=== PATIENT | male | born 1995 | race Caucasian/White ===

== ENCOUNTER → 2016-08-12 | Outpatient (CLI) | payer MEDICAID ==
[~2016-08-12] MED LIST: GADOBUTROL 7.5 MMOL/7.5 ML PFS ONE; INSU100V5 SQ-INSULIN; INSU100V8 SQ; MESA1.2T PO
== END | disposition home or self-care (01) ==
LOC: RAD 09:02
PROVIDERS: ATTEND Family Medicine
DX: M25.461 Effusion, right knee (principal); M71.21 Synovial cyst of popliteal space [Baker], right knee
CPT/HCPCS: 73723; A9585

== ENCOUNTER 2016-11-18 07:23 | Emergency (ER) | payer MEDICAID ==
[~2016-11-18] VITALS: Ht 182.9 cm; Wt 65.8 kg
[~2016-11-18 07:23] MED LIST changes: -GADOBUTROL 7.5 MMOL/7.5 ML PFS ONE
[2016-11-18 07:27] VITALS: BP 99/66
== END 2016-11-18 08:32 | disposition home or self-care (01) ==
LOC: ED 08:09
DX: M13.0 Polyarthritis, unspecified (principal); K51.90 Ulcerative colitis, unspecified, without complications
CPT/HCPCS: 99283

== ENCOUNTER 2016-12-10 10:04 | Emergency (ER) | payer MEDICAID ==
[~2016-12-10] VITALS: Ht 182.9 cm; Wt 66.7 kg
[2016-12-10 10:22] VITALS: BP 117/74
[2016-12-10 11:11] LABS: HEMATOCRIT 39.8 % (39.2-51.8); WHITE BLOOD COUNT 10.4 x10^3/uL (3.4-10)
[2016-12-10 11:22] LABS: BLOOD UREA NITROGEN 14 mg/dL (7-18)
[2016-12-10] MEDS ORDERED: OXYcodone/APAP 10/325MG TABLET PO ONE (12:30)
[2016-12-10] MEDS ORDERED: OXYcodone/APAP 10/325MG TABLET ONE (12:33)
[2016-12-12 13:01] LABS: RHEUMATOID FACTOR SCREEN NEGATIVE (NEGATIVE)
[2016-12-12 14:37] LABS: ANA SCREEN NEGATIVE (Negative)
== END 2016-12-10 12:44 | disposition home or self-care (01) ==
LOC: ED 11:58
DX: M13.0 Polyarthritis, unspecified (principal); E10.9 Type 1 diabetes mellitus without complications
CPT/HCPCS: 36415; 80048; 82040; 85025; 85651; 86038; 86141; 86256; 86430; 99284; J7512

== ENCOUNTER 2017-01-02 16:53 | Inpatient (IN) | payer MEDICAID ==
[~2017-01-02] VITALS: Ht 182.9 cm; Wt 76.0 kg
[2017-01-02] MEDS ORDERED: ONDANSETRON ODT 4 MG PO ONE (17:30)
[2017-01-02 17:42] LABS: HEMATOCRIT 45.4 % (39.2-51.8); HEMOGLOBIN 15.1 g/dL (13.7-18.0); WHITE BLOOD COUNT 19.8 x10^3/uL (3.4-10)
[2017-01-02 17:54] LABS: ASPARTATE AMINO TRANSFERASE 8 U/L (15-37); BLOOD UREA NITROGEN 9 mg/dL (7-18)
[2017-01-02] MEDS ORDERED: ONDANSETRON 2MG/ML, 2ML IVPush ONE (18:00)
[2017-01-02] MEDS ORDERED: SODIUM CHLORIDE 0.9% 1,000ML IVBOLUS ONE ×2 (18:00→20:00)
[2017-01-02 18:10] LABS: DIFF TOTAL CELLS COUNTED 100 CELL DIFF
[2017-01-02 18:12] LABS: ANISOCYTOSIS 1+; MICROCYTOSIS 1+
[2017-01-02 18:13] LABS: VERIFY COUNTS? YES
[2017-01-02] MEDS ORDERED: ONDANSETRON 2MG/ML, 2ML ONE ×2 (18:27→20:55)
[2017-01-02] MEDS ORDERED: MORPHINE SULFATE 4 MG/ML, 1ML ONE ×2 (18:27→19:59)
[2017-01-02] MEDS: MORPHINE SULFATE 4 MG/ML, 1ML IVPush PRN ×2 (18:30→20:09)
[2017-01-02] MEDS ORDERED: OMNIPAQUE 350 MG/ML, 100ML BOTTLE ONE (19:16)
[2017-01-02] MEDS ORDERED: PIPERACILLIN/TAZO/PMX 4.5GM 100 ML IV ONE (20:00)
[2017-01-02] MEDS ORDERED: BUPIVACAINE/PF 0.5% ONE (20:09)
[2017-01-02] MEDS ORDERED: MIDAZOLAM 1 MG/ML, 2ML ONE (20:35)
[2017-01-02] MEDS ORDERED: FENTANYL PF 100 MCG/2ML ONE ×2 (20:35)
[2017-01-02] MEDS ORDERED: SUCCINYLCHOLINE 20 MG/ML, 10ML ONE (20:55)
[2017-01-02] MEDS ORDERED: DEXAMETHASONE 4 MG/ML, 1ML ONE (20:55)
[2017-01-02] MEDS ORDERED: KETOROLAC 30 MG/1 ML ONE (20:55)
[2017-01-02] MEDS ORDERED: NEOSTIGMINE 1 MG/ML, 10ML ONE (20:55)
[2017-01-02] MEDS ORDERED: ROCURONIUM 10 MG/ML ONE (20:55)
[2017-01-02] MEDS ORDERED: PROPOFOL 10 MG/ML, 20ML ONE (20:55)
[2017-01-02] MEDS ORDERED: GLYCOPYRROLATE 0.2MG/1ML, 5ML ONE (20:55)
[2017-01-02] MEDS ORDERED: MIDAZOLAM 1 MG/ML, 2ML IV PRN (21:00)
[2017-01-02] MEDS ORDERED: MEPERIDINE/PF 25MG/0.5ML IVPush PRN (21:00)
[2017-01-02] MEDS ORDERED: ACETAMINOPHEN 325 MG TABLET PO PRN (21:00)
[2017-01-02] MEDS ORDERED: HYDROmorphone 1 MG/ML, 1ML IV PRN (21:00)
[2017-01-02] MEDS ORDERED: ALBUTEROL/IPRATROPIUM 2.5MG/0.5MG, 3 ML NPPB PRN (21:00)
[2017-01-02] MEDS ORDERED: FENTANYL PF 100 MCG/2ML IV PRN (21:00)
[2017-01-02] MEDS ORDERED: PROMETHAZINE 25 MG/ML, 1ML IV PRN (21:00)
[2017-01-02] MEDS ORDERED: ONDANSETRON 2MG/ML, 2ML IVPush PRN ×2 (21:00→23:00)
[2017-01-02] MEDS ORDERED: LABETALOL 5MG/ML, 20ML IV PRN (21:00)
[2017-01-02] MEDS ORDERED: hydrALAzine 20 MG/ML, 1ML IV PRN (21:00)
[2017-01-02] MEDS ORDERED: OXYcodone 5 MG/5 ML ORAL.SOL UDC PO PRN (21:00)
[2017-01-02] MEDS ORDERED: METOCLOPRAMIDE 5 MG/ML, 2ML IV PRN (21:00)
[2017-01-02] MEDS ORDERED: BUPIVACAINE/PF 0.5% INFIL ONE (21:46)
[2017-01-02] MEDS ORDERED: MEPERIDINE/PF 25MG/0.5ML ONE (22:08)
[2017-01-02] MEDS ORDERED: OXYcodone 5 MG/5 ML ORAL.SOL UDC ONE (22:09)
[2017-01-02] MEDS ORDERED: NS + 20MEQ KCL 1,000 ML IV SCH (23:00)
[2017-01-02] MEDS ORDERED: MORPHINE SULFATE 4 MG/ML, 1ML IVPush PRN (23:00)
[2017-01-03] VITALS: BP 119/64
[2017-01-03] MEDS: OXYcodone/APAP 5/325MG TABLET PO PRN ×3 (02:14→10:21)
[2017-01-03 04:25] VITALS: BP 116/46
[2017-01-03] MEDS: INSULIN REGULAR 100 UNITS/ML, 3ML VIAL SQ-INSULIN SCH ×3 (04:57→08:19)
[2017-01-03 05:22] LABS: HEMATOCRIT 38.2 % (39.2-51.8); HEMOGLOBIN 12.5 g/dL (13.7-18.0); WHITE BLOOD COUNT 18.5 x10^3/uL (3.4-10)
[2017-01-03 05:33] LABS: BLOOD UREA NITROGEN 11 mg/dL (7-18)
[2017-01-03 08:16] VITALS: BP 107/48
[2017-01-03] MEDS ORDERED: OXYC-302 PO (10:04)
[2017-01-03] MEDS ORDERED: ENOXAPARIN 30 MG/0.3 ML SQ SCH (19:00)
[2017-01-03] MEDS ORDERED: FAMOTIDINE 20 MG/2 ML IVPush SCH (22:57)
== END 2017-01-03 11:20 | disposition home or self-care (01) | DRG 339 ==
LOC: ED 17:44 → EDIP 20:23 → 4NOR 22:39 → DCLOUNGE 01-03 11:06
PROVIDERS: ADMIT Surgery; ATTEND Surgery
PROC: 0DTJ4ZZ Resection of Appendix, Percutaneous Endoscopic Approach (ICD-10-PCS; principal; 2017-01-02 20:15)
DX: K35.3 Acute appendicitis with localized peritonitis (principal); K51.90 Ulcerative colitis, unspecified, without complications; K66.8 Other specified disorders of peritoneum; E10.9 Type 1 diabetes mellitus without complications; Z79.4 Long term (current) use of insulin
CPT/HCPCS: 36415; 74177; 80048; 80053; 81003; 82962; 83690; 85025; 88304; 96361; 96374; 96375; 96376; J1100; J1815; J1885; J2175; J2250; J2405; J2543; J2704; J2710; J3010; J3480; J3490; Q9967; J0330; J7030